=== PATIENT | female | born 1995 | race African-American/Black ===

== ENCOUNTER 2024-01-20 19:19 | Observation (INO) | payer OTHER ==
[~2024-01-20 19:19] MED LIST: Iopamidol-370 76% 500 ML MDV (1 ML CHARGE) ONE
[2024-01-20] MEDS ORDERED: Ondansetron ODT 4 MG TAB ONE (20:17)
[2024-01-20] MEDS ORDERED: Acetaminophen 500 MG TAB ONE (20:17)
[2024-01-20 20:23] LABS: Pregnancy Test - Urine (BHCG) Negative (Negative); Specific Gravity 1.029 (1.002-1.036)
[2024-01-20 20:24] LABS: Pregu Control Background? CLEAR/WHITE (CLR/WHITE); Pregu Control Bar Appear? YES (CONTROL BAR)
[2024-01-20 20:25] LABS: Bacteria/HPF None Seen HPF (None Seen); Bilirubin Negative (Negative); Blood, Urine Negative (Negative); CAUTI Indications for Culture Acute Hematuria; Clarity Clear (Clear); Glucose, Urine (Dipstick) Normal (Negative); Ketone, Urine Negative (Negative); Leukocyte 250 Leu/uL (Negative); Nitrite Negative (Negative); Protein, Urine (Dipstick) 10 mg/dL (Neg-Trace); RBC/HPF 0-3 HPF (0-3); Specific Gravity, Urine 1.029 (1.002-1.036); Urobilinogen Normal mg/dL (Less than 2); WBC/HPF 21-50 HPF (0-3); pH, Urine 5.5 (5.0-9.0)
[2024-01-20 20:26] LABS: Urine Culture Reflex Yes Yes
[2024-01-20 20:51] LABS: #Basophils 0.05 10x3/uL (0.0-0.2); %Basophils 0.4 % (0.0-1.0); %Eosinophils 0.7 % (0.0-10.0); %Lymphocytes 20.6 % (21.0-51.0); %Monocytes 7.8 % (0.0-10.0); %Neutrophils 70.1 % (42.0-75.0); Hematocrit 33.8 % (36.0-47.0); Hemoglobin 10.9 g/dL (12.0-16.0); Mean Corpuscular HGB CONC 32.2 g/dL (32.0-36.0); Mean Corpuscular Hemoglobin 28.5 pg (27.0-31.0); Mean Corpuscular Volume 88.3 fL (78.0-98.0); Mean Platelet Volume 13.1 fL (7.4-10.4); Platelet Count 160 10x3/uL (130-400); RBC Distribution Width 14.6 % (11.5-14.5); Red Blood Cell (RBC) Count 3.83 mill/uL (4.20-5.40)
[2024-01-20 22:30] LABS: ALT (SGPT) 9 U/L (8-55); AST (SGOT) 17 U/L (5-34); Albumin 3.7 g/dL (3.5-5.0); Alkaline Phosphatase 62 U/L (40-110); Anion Gap 14 mmol/L (10-20); BUN (Urea Nitrogen) 9 mg/dL (7.0-18.7); Bilirubin, Total 0.3 mg/dL (0.2-1.2); Calc. Creatinine Clearance 0 mL/min (70-130); Calcium 8.6 mg/dL (7.8-10.44); Carbon Dioxide 21 mmol/L (22-29); Chloride 103 mmol/L (98-107); Estimated GFR 90; Globulin 4.2 g/dL (2.4-3.5); Glucose 109 mg/dL (70-105); Lipase 31 U/L (8-78); Potassium 4.1 mmol/L (3.5-5.1); Protein, Total 7.9 g/dL (6.0-8.3); Sodium 134 mmol/L (136-145)
[2024-01-20] MEDS ORDERED: Ondansetron PF 4 MG/2 ML Vial IVP PRN (22:46)
[2024-01-20] MEDS ORDERED: Glucagon 1 MG/ML KIT IM PRN (22:46)
[2024-01-20] MEDS ORDERED: Dextrose 5% in Water 1,000 ML IV PRN (22:46)
[2024-01-20] MEDS ORDERED: Dextrose 50% Abboject 50 ML SYRINGE SLOW IVP PRN (22:46)
[2024-01-20] MEDS ORDERED: Piperacillin/Tazobactam 3.375 GM VIAL ONE (22:58)
[2024-01-20] MEDS ORDERED: Morphine 4 MG/ML VIAL ONE (22:58)
[2024-01-20] MEDS ORDERED: Sodium Chloride 0.9% 100 ML ONE (22:58)
[2024-01-20 23:42] VITALS: BMI 31.8
[2024-01-21] MEDS: Morphine 2 MG/ML VIAL SLOW IVP PRN (01:19)
[2024-01-21] MEDS: Acetaminophen 325 MG TAB PO PRN (01:19)
[2024-01-21] MEDS: fentaNYL 50 mcg/mL 1 mL Vial SLOW IVP PRN (02:45)
[2024-01-21 05:06] LABS: #Basophils 0.04 10x3/uL (0.0-0.2); %Basophils 0.3 % (0.0-1.0); %Eosinophils 0.2 % (0.0-10.0); %Lymphocytes 12.4 % (21.0-51.0); %Monocytes 12.8 % (0.0-10.0); Hematocrit 30.4 % (36.0-47.0); Hemoglobin 9.6 g/dL (12.0-16.0); Mean Corpuscular HGB CONC 31.6 g/dL (32.0-36.0); Mean Corpuscular Hemoglobin 28.3 pg (27.0-31.0); Mean Corpuscular Volume 89.7 fL (78.0-98.0); Platelet Count 398 10x3/uL (130-400); Red Blood Cell (RBC) Count 3.39 mill/uL (4.20-5.40)
[2024-01-21] MEDS: Piperacillin/Tazobactam 3.375 GM in Sodium Chloride 0.9% 100 ML IVPB SCH (05:10)
[2024-01-21 05:32] LABS: ALT (SGPT) 9 U/L (8-55); AST (SGOT) 18 U/L (5-34); Albumin 3.2 g/dL (3.5-5.0); Alkaline Phosphatase 57 U/L (40-110); Anion Gap 8 mmol/L (10-20); BUN (Urea Nitrogen) 8 mg/dL (7.0-18.7); Bilirubin, Total 0.4 mg/dL (0.2-1.2); Calc. Creatinine Clearance 127 mL/min (70-130); Carbon Dioxide 24 mmol/L (22-29); Chloride 110 mmol/L (98-107); Estimated GFR 94; Globulin 3.6 g/dL (2.4-3.5); Glucose 114 mg/dL (70-105); Potassium 3.5 mmol/L (3.5-5.1); Protein, Total 6.8 g/dL (6.0-8.3); Sodium 138 mmol/L (136-145)
[2024-01-21] MEDS ORDERED: Piperacillin/Tazobactam 2.25 GM in Sodium Chloride 0.9% 100 ML IVPB SCH (06:00)
[2024-01-21 06:01] LABS: Chlamydia by PCR, Vaginal Swab Not Detected (NotDetected); GC by PCR, Vaginal Swab Not Detected (NotDetected)
[2024-01-21] MEDS ORDERED: Bupivacaine 0.25% HCL 30 ML VIAL ONE (10:27)
[2024-01-21] MEDS ORDERED: EPINEPHrine 1 MG/ML VIAL ONE (10:27)
[2024-01-21] MEDS ORDERED: PROPOFOL 20 ML ONE (10:34)
[2024-01-21] MEDS ORDERED: Midazolam HCl 2 mg/2 ml Vial ONE ×2 (10:34→10:38)
[2024-01-21] MEDS ORDERED: Dexamethasone 4 mg/ml Vial ONE ×2 (10:34)
[2024-01-21] MEDS ORDERED: Rocuronium Bromide 10 MG/ML (10ML VIAL) ONE (10:34)
[2024-01-21] MEDS ORDERED: PHENYLEPHRINE-NS 100 MCG/ML 10 ML SYRINGE ONE (10:34)
[2024-01-21] MEDS ORDERED: fentaNYL PF 100 MCG/2 ML SYRINGE ONE (10:34)
[2024-01-21] MEDS ORDERED: Ondansetron PF 4 MG/2 ML Vial ONE (10:34)
[2024-01-21] MEDS ORDERED: Lidocaine 2% PF 5 ML VIAL ONE (10:34)
[2024-01-21] MEDS ORDERED: Glycopyrrolate 0.2 MG/ML 5 ML SYRINGE ONE (10:34)
[2024-01-21] MEDS ORDERED: PROPOFOL 40 ML ONE (11:18)
[2024-01-21] MEDS ORDERED: HYDROmorphone 2 MG/ML VIAL ONE (11:28)
[2024-01-21] MEDS ORDERED: SUGAMMADEX SODIUM 200 MG/2 ML VIAL ONE (11:30)
[2024-01-21] MEDS ORDERED: Naloxone HCl 0.4 mg/ml Vial ONE (11:43)
[2024-01-21] MEDS ORDERED: Ketorolac Tromethamine 30 MG (1 mL) VIAL ONE (12:01)
[2024-01-21] MEDS ORDERED: fentaNYL 50 mcg/mL 1 mL Vial ONE (12:02)
[2024-01-21] MEDS: traMADol HCl 50 MG TAB PO PRN (16:02)
[2024-01-21 20:57] VITALS: BP 122/75; TEMP 97.8
== END 2024-01-21 20:50 | disposition home or self-care (01) ==
LOC: ERS 19:19 → T4-B 22:46
PROVIDERS: ADMIT Surgery; ATTEND Surgery
PROC: 0DTJ4ZZ Resection of Appendix, Percutaneous Endoscopic Approach (ICD-10-PCS; principal; 2024-01-21)
DX: K35.80 Unspecified acute appendicitis (principal); G80.9 Cerebral palsy, unspecified; Z79.899 Other long term (current) drug therapy
CPT/HCPCS: 36415; 74177; 80053; 81001; 81025; 83690; 85025; 87086; 87480; 87491; 87510; 87591; 87660; 88304; 96365; 96375; 96376; A4649; G0378; J0171; J0665; J1100; J1885; J2250; J2272; J2310; J2405; J2543; J2704; J3010; Q0162; Q9967